=== PATIENT | female | born 1995 | race African-American/Black ===

== ENCOUNTER 2022-07-16 09:59 | Emergency (ER) | payer OTHER ==
[2022-07-16 10:18] VITALS: BP 130/78; PULSE 85; RESP 18; TEMP 98.1; BMI 43.2
[2022-07-16] MEDS ORDERED: GLYCERIN 1 RECTAL SUPPOSITORY, ADULT PR ONE (11:49)
[2022-07-16] MEDS ORDERED: GLYCERIN 1 RECTAL SUPPOSITORY, PEDIATRIC RC ONE (11:52)
== END 2022-07-16 12:05 | disposition home or self-care (01) ==
LOC: JER 09:59
DX: K59.00 Constipation, unspecified (principal)
CPT/HCPCS: 84703; 99283-25

== ENCOUNTER 2022-07-16 20:09 | Emergency (ER) | payer OTHER ==
[2022-07-16 20:19] VITALS: BP 142/80; PULSE 89; RESP 18; TEMP 98; BMI 43.2
[2022-07-16] MEDS ORDERED: SODIUM PHOSPHATE/NA BIPHOS 133 ML ENEMA PR ONE (21:23)
== END 2022-07-16 21:33 | disposition home or self-care (01) ==
LOC: JER 20:09 → JERFT 20:09
DX: K56.41 Fecal impaction (principal); K59.00 Constipation, unspecified
CPT/HCPCS: 99283-25